=== PATIENT | female | born 1935 | race Caucasian/White ===

== ENCOUNTER 2019-04-04 05:15 | Inpatient (IN) | payer MEDICARE ==
--- NOTE | 2019-03-31 12:28 | Diagnostic Imaging Report ---
EXAM: CHEST 2 VIEWS, PA and lateral DATE: 03/31/2019 Time stamp on exam: 11:54 AM INDICATION: Preoperative for hip surgery COMPARISON: None FINDINGS: LINES/TUBES: None LUNGS: No consolidations or edema. PLEURA: No effusions or pneumothorax. HEART AND MEDIASTINUM: Normal size and contour. Tortuous thoracic aorta. BONES AND SOFT TISSUES: Sclerotic density of the right humeral head likely secondary to degenerative change or aseptic necrosis. IMPRESSION: No acute thoracic abnormality. Signed by: Dr. Hitesh Campa DO on 03/31/2019 12:25 PM
--- OUTSIDE RECORDS SUMMARY | 2019-04-03 06:41 | XMS REPORT ---
Author Author [facility] Address Unknown Phone Unavailable Care Team Providers Care Precision Structural Metal Fitter Name Role Phone BARRY VALDES Unavailable Unavailable Problems This patient has no known problems. Allergies, Adverse Reactions, Alerts This patient has no known allergies or adverse reactions. Medications This patient has no known medications. Results Test Description Test Time Test Comments Text Results Atomic Results Result Comments CHEST 2 VIEWS 2019-03-31 12:23:00 [place] [address] Patient Name: CANDICE GODINEZ MR #: [id number] : 1935 Age/Sex: 83/F Req #: [id number] Adm Physician: Ordered by: BARRY VALDES MD Report #: [id number] Location: OR Room/Bed: Procedure: [id number] DX/CHEST 2 VIEWS Exam Date: 03/31/19 Exam Time: 1155 REPORT STATUS: Signed EXAM: CHEST 2 VIEWS, PA and lateral DATE: 03/31/2019 Time sta mp on exam: 11:54 AM INDICATION: Preoperative for hip surgery COMPARISON: None FINDINGS: LINES/TUBES: None LUNGS: No consolidations or edema. PLEURA: No effusions or pneumothorax. HEART AND MEDIASTINUM: Normal size and contour. Tortuous thoracic aorta. BONES AND SOFT TISSUES: Sclerotic density of the right humeral head likely secondary to degenerative change or aseptic necrosis. IMPRESSION: No acute thoracic abnormality. Signed by: Dr. Kapil Campa DO on 03/31/2019 12:25 PM Dictated By: KAPIL CAMPA DO 1225 Transcribed By: BREN on 03/31/19 1225 COPY TO: BARRY VALDES MD
--- OUTSIDE RECORDS SUMMARY | 2019-04-03 06:42 | XMS REPORT | Summary of Care ---
Author Author [facility] Unknown Address Unknown Phone Unavailable Care Team Providers Care Needle Punch Operator Name Role Phone ALISHA JEFFERY M.D. Unavailable Unavailable MEL JONES Unavailable Unavailable LATIA MARTINEZ ILALISHA Unavailable Unavailable Unavailable Unavailable Functional Status Name Dates Details Functional status health issues are not documented Status: Name Dates Details Cognitive status health issues are not documented Status: Problems Name Dates Details Neuropathy, peripheral (356.9, G62.9) Status: Active GERD without esophagitis (530.81, K21.9) Status: Active Osteopenia (733.90, M85.80) Status: Active Osteoarthrosis (715.90, M19.90) Status: Active Essential hypertension (401.9, I10) Status: Active Hypercholesteremia (272.0, E78.00) Status: Active Hypothyroidism (244.9, E03.9) Status: Active Preoperative evaluation to rule out surgical contraindication (V72.83, Z01.818) Status: Active Medications Name Dates Details Levothyroxine Sodium 50 MCG Oral Tablet TAKE 1 TABLET BY MOUTH ONCE DAILY Quantity: 90 ALISHA JEFFERY M.D. * Start : 08-Mar-2019 Active Atorvastatin Calcium 10 MG Oral Tablet TAKE 1 TABLET BY MOUTH ONCE DAILY * Quantity: 90 Refills: 1 ALISHA JEFFERY M.D. * Start : 23-Jan-2019 Active Omeprazole 40 MG Oral Capsule Delayed Release TAKE ONE CAPSULE EVERY DAY * Quantity: 90 Refills: 1 ALISHA JEFFERY M.D. Active Gabapentin 300 MG Oral Capsule TAKE 1 CAPSULE BY MOUTH TWICE DAILY * Quantity: 180 Refills: 0 ALISHA JEFFERY M.D. * Start : 02-Mar-2019 Active Quinapril HCl - 10 MG Oral Tablet TAKE 1 TABLET BY MOUTH ONCE DAILY * Quantity: 90 Refills: 0 ALISHA JEFFERY M.D. * Start : 08-Mar-2019 Active hydroCHLOROthiazide 12.5 MG Oral Capsule TAKE 1 CAPSULE BY MOUTH ONCE DAILY * Quantity: 90 Refills: 1 ALISHA JEFFERY M.D. * Start : 08-Mar-2019 Active Citracal Plus Oral Tablet TAKE 1 TABLET TWICE DAILY * Quantity: 180 Refills: 3 LATIA FofanaALISHA * Start : 14-Oct-2017 Active B-12 100 MCG Oral Tablet TAKE 1 TABLET DAILY DIRECTED. * Refills: 0 Active Glucosamine Chondroitin TABS TAKE 2 TABLET DAILY * Refills: 0 Active Fish Oil 300 MG CAPS TAKE 2 CAPSULE DAILY * Refills: 0 Active Centrum Silver Oral Tablet TAKE 1 TABLET DAILY. * Refills: 0 Active Tylenol 8 Hour Arthritis Pain 650 MG Oral Tablet Extended Release TAKE 1 TABLET 3 TIMES DAILY. * Quantity: 90 Refills: 0 LATIA FofanaALISHA * Start : 11-May-2018 Active Vitamin D3 1000 UNIT Oral Tablet TAKE 1 TABLET TWICE DAILY * Refills: 0 Active Allergies and Adverse Reactions Name Dates Details No Known Drug Allergies (Allergy) Status: Active Past Medical History Name Dates Details History of gastroesophageal reflux (GERD) (V12.79, Z87.19) Status: Resolved History of hyperlipidemia (V12.29, Z86.39) Status: Resolved Procedures Procedure Dates Details History of Hip replacement Completed Immunization Name Dates Details Influenza, seasonal, injectable on: 29-Jun-2017 Prevnar 13 Intramuscular Suspension on: 27-Aug-2017 Fluzone High-Dose 0.5 ML Intramuscular Suspension Prefilled Syringe Lot #: [id number] on: 27-Jun-2018 Family History Name Dates Details Family history of essential hypertension (V17.49, Z82.49) Status: Active Social History Name Dates Details - Status: Name Dates Details Never smoker Never smoker Vital Signs Date Test Result Details [id number] BP Systolic 134 mm[Hg] Status: Comments: Location: LUE; Position: Sitting BP Diastolic 71 mm[Hg] Status: Comments: Location: LUE; Position: Sitting Physical Findings 0 Status: Comments: PHQ-9 Adult Depression Screening Physical Findings 0 Status: Comments: Alcohol Screen - How many times in the past yr have you had 5 (for M) or 4 (for F) or 4 (for all > 65yrs) or more drinks in a day? Height 65 in Status: Weight 143.3 lb Status: Body Mass Index Calculated 23.85 kg/m2 Status: Body Surface Area Calculated 1.72 m2 Status: Temperature 98 f Status: Comments: Method: Oral Heart Rate 64 /min Status: Respiration Rate 16 /min Status: Results Date Description Value Details :26 [[facility]] LIPID PANEL CHOLESTEROL, TOTAL 181 mg/dl (Normal) Range: <200 HDL CHOLESTEROL 62 mg/dl (Normal) Range: >50 TRIGLYCERIDES 192 mg/dl (Above high threshold) Range: <150 LDL-CHOLESTEROL 90 {MG/DL__CAL} (Normal) Comments: Reference range: <100 Desirable range <100 mg/dL for primary prevention; <70 mg/dL for patients with CHD or diabetic patients with > or=2 CHD risk factors. LDL-C is now calculated using yamilet Fountain calculation, which is a validated novel method providing better accuracy than the Friedewald equation in the estimation of LDL-C. Adiel LOTT et al. ANGELA. 2013;310(19): 4969-8414 (http:/ /[employer]/faq/FVG817) CHOL/HDLC RATIO 2.9 {CALC} (Normal) Range: <5.0 NON HDL CHOLESTEROL 119 {MG/DL__CAL} (Normal) Range: <130 Comments: For patients with diabetes plus 1 major ASCVD risk factor, treating to a non-HDL-C goal of <100 mg/dL (LDL-C of <70 mg/dL) is considered a therapeutic option. :26 [[facility]] PROTHROMBIN W/INR + PARTIAL THROMBOPLASTIN TIMES Comments: Reference Range 0.9-1.1Moderate-intensity Warfarin Therapy 2.0-3.0Higher-intensity Warfarin Therapy 3.0-4.0 PARTIAL THROMBOPLASTIN TIME, ACTIVATED 28 {sec} (Normal) Range: 22-34 Comments: This test has not been validated for monitoringunfractionated heparin therapy. For testing thatis validated for this type of therapy, please referto the Heparin Anti-Xa assay (test code 91060). For additional information, please refer tohttp://education.[employer]/faq/LFI321(This link is being provided for informational/educational purposes only.) INR 1.1 (Normal) Comments: Reference Range 0.9-1.1Moderate-intensity Warfarin Therapy 2.0-3.0Higher-intensity Warfarin Therapy 3.0-4.0 PT 10.9 {sec} (Normal) Range: 9.0-11.5 :26 [[facility]] CMP W/EGFR GLUCOSE 87 mg/dl (Normal) Range: 65-99 Comments: Fasting reference interval UREA NITROGEN (BUN) 16 mg/dl (Normal) Range: 7-25 CREATININE 0.71 mg/dl (Normal) Range: 0.60-0.88 Comments: For patients >49 years of age, the reference limitfor Creatinine is approximately 13% higher for peopleidentified as -Citizen Of [place]. eGFR NON- 78 {ML/MIN/1.7} (Normal) Range: > OR=60 eGFR 90 {ML/MIN/1.7} (Normal) Range: > OR=60 BUN/CREATININE RATIO NOT APPLICABLE {CALC} Range: 6-22 SODIUM 139 mmol/L (Normal) Range: 135-146 POTASSIUM 4.1 mmol/L (Normal) Range: 3.5-5.3 CHLORIDE 102 mmol/L (Normal) Range: 98-110 CARBON DIOXIDE 27 mmol/L (Normal) Range: 20-32 CALCIUM 9.7 mg/dl (Normal) Range: 8.6-10.4 PROTEIN, TOTAL 7.2 g/dl (Normal) Range: 6.1-8.1 ALBUMIN 4.4 g/dl (Normal) Range: 3.6-5.1 GLOBULIN 2.8 {G/DL__CALC} (Normal) Range: 1.9-3.7 ALBUMIN/GLOBULIN RATIO 1.6 {CALC} (Normal) Range: 1.0-2.5 BILIRUBIN, TOTAL 0.4 mg/dl (Normal) Range: 0.2-1.2 ALKALINE PHSPHATASE 65 u/l (Normal) Range: 33-130 AST 13 u/l (Normal) Range: 10-35 ALT 11 u/l (Normal) Range: 6-29 80-Zin-99025:26 [[facility]] CBC (INCLUDES DIFF/PLT) WHITE BLOOD CELL COUNT 6.0 {Thousand/u} (Normal) Range: 3.8-10.8 RED BLOOD CELL COUNT 4.72 {Million/uL} (Normal) Range: 3.80-5.10 HEMAGLOBIN 14.1 g/dl (Normal) Range: 11.7-15.5 HEMATOCRIT 41.7 % (Normal) Range: 35.0-45.0 MCV 88.3 fL (Normal) Range: 80.0-100.0 MCH 29.9 pg (Normal) Range: 27.0-33.0 MCHC 33.8 g/dl (Normal) Range: 32.0-36.0 RDW 13.3 % (Normal) Range: 11.0-15.0 PLATELET COUNT 230 {Thousand/u} (Normal) Range: 140-400 MPV 9.7 fL (Normal) Range: 7.5-12.5 ABSOLUTE NEUTROPHILS 3018 {cells/uL} (Normal) Range: 1458-0269 ABSOLUTE LYMPHOCYTES 2508 {cells/uL} (Normal) Range: 850-3900 ABSOLUTE MONOCYTES 198 {cells/uL} (Below low threshold) Range: 200-950 ABSOLUTE EOSINOPHILS 228 {cells/uL} (Normal) Range: 15-500 ABSOLUTE BASOPHILS 48 {cells/uL} (Normal) Range: 0-200 NEUTROPHILS 50.3 % (Normal) LYMPHOCYTES 41.8 % (Normal) MONOCYTES 3.3 % (Normal) EOSINOPHILS 3.8 % (Normal) BASOPHILS 0.8 % (Normal) :26 [[facility]] TSH, 3RD GENERATION TSH 4.44 {MIU/L} (Normal) Range: 0.40-4.50 :26 [[facility]] VITAMIN D, 25-HYDROXY, LC/MS/MS Comments: REPORT COMMENT:FASTING:YES VITAMIN D,25-OH,TOTAL,IA 33 ng/ml (Normal) Range: 30-100 Comments: Vitamin D Status 25-OH Vitamin D: Deficiency: <20 ng/mLInsufficiency: 20 - 29 ng/mLOptimal: > or=30 ng/mL For 25-OH Vitamin D testing on patients on D2-supplementation and patients for whom quantitation of D2 and D3 fractions is required, the QuestAssureD(TM)25-OH VIT D, (D2,D3), LC/MS/MS is recommended: order code 04012 (patients >2yrs). For more information on this test, go to:http://education.Peer[employer]/faq/KEB468(This link is being provided for informational/educational purposes only.) Plan of Care Name Dates Details Planned Observations Planned Goals not documented Planned Encounters Appointment; ALISHA JEFFERY M.D. On: 18-Jul-2019 15:15 Instructions Name Dates Details Instructions not documented Encounters Appointment; ALISHA JEFFERY M.D. Encounter Diagnosis: Problem not documented On: 14-Oct-2017 10:00 Appointment; ALISHA JEFFERY M.D. Encounter Diagnosis: Problem not documented On: 11-Jan-2018 11:00 Appointment; ALISHA JEFFERY M.D. Encounter Diagnosis: Problem not documented On: 11-May-2018 14:00 Appointment; ALISHA JEFFERY M.D. Encounter Diagnosis: Problem not documented On: 08-Jun-2018 11:30 Appointment; ALISHA JEFFERY M.D. Encounter Diagnosis: Problem not documented On: 07-Sep-2018 11:30 Appointment; ALISHA JEFFERY M.D. Encounter Diagnosis: Problem not documented On: 07-Sep-2018 11:30 Appointment; ALISHA JEFFERY M.D. Encounter Diagnosis: Problem not documented On: 12-Dec-2018 11:30 Appointment; ALISHA JEFFERY M.D. Encounter Diagnosis: Problem not documented On: 22-Mar-2019 14:30 Appointment; MEL JONES Encounter Diagnosis: Problem not documented On: 28-Mar-2019 16:00
[2019-04-04] VITALS (8 sets, daily range): BP systolic 107–141; BP diastolic 55–65
[~2019-04-04] VITALS: Ht 160 cm; Wt 66.2 kg
[~2019-04-04 05:15] MED LIST: ATORVASTATIN; ATORVASTATIN CA10 MG PO; BACITRACIN 50,000 UNIT VIAL ONE; CENTRUM SILVER1 EAC3 PO; CITRACAL PO; FISH OIL 1,0001 EAC2 PO; GABAPENTIN; GABAPENTIN300 MG PO; GLUCOSAMINE1000 MG PO; HYDROCHLOROTHIA25 MG PO; HYDROGEN PEROXIDE 120 ML BTL ONE; LEVOTHYROXINE; LEVOTHYROXINE50 MCG PO; OMEPRAZOLE40 MG; QUINAPRIL HCL20 MG PO; ROPIVACAINE 246.25 MG, EPINEPHRINE HCL 1:1000 1ML 0.5 MG, CLONIDINE HCL 0.08 MG, KETORO... INJ ONE; SODIUM CHLORIDE 0.9% 500ML 0 ML ONE; TRANEXAMIC ACID 1,000 MG/10 ML ML ONE; TYLENOL ARTHRITIS PO; VANCOMYCIN HCL 0 MG ONE; VITAMIN B12-FO1 EACH PO; VITAMIN D31000 UNIT PO
[2019-04-04] MEDS ORDERED: CELECOXIB 200 MG CAP ONE (06:01)
[2019-04-04] MEDS ORDERED: DEXAMETHASONE SOD PHOS 10 MG/1 ML VIAL ONE (06:01)
[2019-04-04] MEDS ORDERED: GABAPENTIN 300 MG CAP ONE (06:01)
[2019-04-04] MEDS ORDERED: CEFAZOLIN SOD 1 GM/NS 50ML 100 ML IV ONE (06:02)
[2019-04-04] MEDS ORDERED: HYDROCODONE/APAP 7.5MG-325MG 1 EA TAB PO PRN (09:00)
[2019-04-04] MEDS ORDERED: KETOROLAC TROMETHAMINE 30 MG/ML VIAL IV PRN (09:00)
[2019-04-04] MEDS ORDERED: ZOLPIDEM TARTRATE 5 MG TAB PO PRN (09:00)
[2019-04-04] MEDS ORDERED: DIPHENHYDRAMINE HCL INJ 50 MG/ML VIAL IM/IV PRN (09:00)
[2019-04-04] MEDS ORDERED: ONDANSETRON HCL INJ 2MG/ML 2ML 2 MG/ML VIAL IV PRN (09:00)
[2019-04-04] MEDS: ASPIRIN 325 MG TAB PO SCH ×2 (09:00→17:30)
[2019-04-04] MEDS ORDERED: PROMETHAZINE HCL (IM) 25 MG/ML VIAL INJ PRN (09:00)
[2019-04-04] MEDS ORDERED: ACETAMINOPHEN 650 MG SUPP PR PRN (09:00)
[2019-04-04] MEDS ORDERED: HYDROCODONE/APAP 5MG-325MG TAB PO PRN (09:00)
[2019-04-04] MEDS ORDERED: DOCUSATE SODIUM 100 MG CAP PO PRN (09:00)
--- NOTE | 2019-04-04 10:05 | NUR ---
RECEIVED PATIENT FROM OR. PATIENT A/O X3, EVEN RESPIRATIONS ON RA. LEFT HIP DRESSING CLEAN, DRY, AND INTACT. ABDUCTOR PILLOW IN PLACE. BETHANIE HOSE AND FOOT PUMPS BILATERALLY. VITAL SIGNS STABLE. NO DISCOMFORT AT THIS TIME. BED LOW, WHEELS LOCKED, SIDE RAILS X2. CALL LIGHT IN REACH WILL CONTINUE TO MONITOR PATIENT.
[2019-04-04] MEDS: SODIUM CHLORIDE 0.9% 1000ML 1,000 ML IV SCH ×2 (11:17→16:03)
--- NOTE | 2019-04-04 12:16 | Diagnostic Imaging Report ---
Exam: AP pelvis History: Prosthesis Comparison: None available Findings: New left hip prosthesis is present with surgical mathew noted laterally. There is some soft tissue air. Positioning is good. Old left hip prosthesis is in good position. Impression: Hip prosthesis in good position. Signed by: Dr. Hitesh Campa DO on 04/04/2019 12:13 PM
[2019-04-04] MEDS: ACETAMINOPHEN 1000 MG/100 ML IV SCH ×2 (12:38→17:30)
[2019-04-04] MEDS: CEFAZOLIN SOD 1 GM/NS 50ML 50 ML IV SCH (14:39)
--- NOTE | 2019-04-04 15:50 | NUR ---
PATIENT HAS VOIDED SINCE SURGERY.
[2019-04-04] MEDS: CELECOXIB 100 MG CAP PO SCH (17:30)
[2019-04-04] MEDS ORDERED: LIDOCAINE HCL 2% LOCAL INJ 5 ML SDV VIAL INJ ONE (17:52)
[2019-04-04] MEDS ORDERED: EPHEDRINE SULFATE INJ 50 MG/10 ML SYR ONE (17:52)
[2019-04-04] MEDS ORDERED: DESFLURANE 240 ML BTL INH ONE (17:52)
[2019-04-04] MEDS ORDERED: ONDANSETRON HCL INJ 2MG/ML 2ML 2 MG/ML VIAL ONE (17:52)
[2019-04-04] MEDS ORDERED: PROPOFOL IV EMULSION 10 MG/ML 20 ML VIAL ONE (17:52)
[2019-04-04] MEDS ORDERED: ACETAMINOPHEN 1000 MG/100 ML IV ONE (17:52)
[2019-04-04] MEDS ORDERED: DEXAMETHASONE SOD PHOS INJ 4 MG/ML VIAL ONE (17:52)
--- NOTE | 2019-04-04 19:20 | NUR ---
Received patient in bed in no acute distress, patient is alert and oriented, safety and fall precautions maintained as per hospital protocol: bed in lowest position and locked, needed items beside bed and call tidwell placed close to patient, patient is currently stable, will continue to monitor.
[2019-04-04] MEDS ORDERED: FENTANYL CITRATE/PF 100MCG/2 ML INJ ONE (19:57)
[2019-04-04] MEDS ORDERED: MIDAZOLAM HCL 2 MG/2 ML VIAL ONE (19:57)
[2019-04-05 04:00] VITALS: BP 137/63
[2019-04-05] MEDS: SODIUM CHLORIDE 0.9% 1000ML 1,000 ML IV SCH (04:58)
[2019-04-05] MEDS: ACETAMINOPHEN 1000 MG/100 ML IV SCH ×2 (05:40)
[2019-04-05 06:03] LABS: HEMATOCRIT 34.5 % (34.2-44.1); HEMOGLOBIN 11.5 g/dL (12.0-16.0)
[2019-04-05] MEDS: CEFAZOLIN SOD 1 GM/NS 50ML 50 ML IV SCH ×2 (06:41)
--- NOTE | 2019-04-05 06:54 | NUR ---
Patient condition throughout the night was stable, patient endorsed to next shift for continuity of care.
--- NOTE | 2019-04-05 07:20 | NUR ---
AMBULATING IN HALLWAY, STEADY GAIT, PHYSICAL THERAPIST AT SIDE
[2019-04-05 08:27] VITALS: BP 172/77
[2019-04-05] MEDS ORDERED: ONDANSETRON HCL 4 MG ORAL DISINTEGRATING TAB PO PRN (08:30)
--- NOTE | 2019-04-05 08:36 | NUR ---
MD VALDES INTO SEE PT, DISCUSSED POC
--- NOTE | 2019-04-05 08:36 | Operative Report ---
DATE OF PROCEDURE: 04/04/2019 SURGEON: Wayne Hewitt MD SECURED ENTRANCE MONITOR: Herb Bobby, certified PA PREOPERATIVE DIAGNOSIS: Osteoarthritis, left hip. POSTOPERATIVE DIAGNOSIS: Osteoarthritis, left hip. PROCEDURE: Left total hip arthroplasty. INDICATIONS: The patient is an 83-year-old lady, who has severe arthritis of her left hip. She has failed conservative management and would now like to proceed with a left total hip replacement. She went through a right hip replacement some years ago. I have reviewed the risks and benefits of the procedure. She states she understands and wishes to proceed. DESCRIPTION OF PROCEDURE: The patient was brought to the operating room and given a spinal anesthetic. She received prophylactic antibiotics and tranexamic acid in the holding area. She was also placed under a light general anesthetic. She was positioned in the right lateral decubitus position. Her left hip was prepped and draped in a sterile manner. A preoperative time-out was performed. A limited incision posterior approach was made to the left hip. Hemostasis was obtained with electrocautery. Care was taken to avoid injury to the sciatic nerve. The posterior capsule and short external rotators were released. Additional hemostasis was obtained with electrocautery. The hip was dislocated and an oscillating saw was used to resect the femoral head. Complete loss of articular cartilage was noted. Acetabular retractors were placed. A large remnant of degenerative labrum was excised. The true floor of the acetabulum was established with a 46 mm reamer. The socket was then sequentially reamed up to 55 mm. This accomplished bleeding hemispherical cancellous bone. Two or three small subchondral cysts were debrided with a curved curette and packed with autologous bone graft. A [employer] Trident 56 mm outer diameter socket was then impacted into place. Fixation was augmented with single 25 mm screw placed into the ilium. Good fixation was felt to be obtained. The socket had been thoroughly irrigated with a shower tip pulsatile lavage. A spray mixture of diluted vancomycin and polymyxin spray was also used throughout the case. A portion of 100 cc premixed pericapsular DYAN injection was placed around the capsule of the acetabulum. A highly cross-linked polyethylene liner with a 36 mm inner diameter was then impacted into place. Care was taken to make sure that there was no evidence of soft tissue interposition. The socket was packed with a moistly soaked lap sponge and attention was directed towards the proximal femur. A box cutting osteotome and taper pin reamer were used to establish entry to the femoral canal. The Tabor 37.5 mm offset broaches were impacted. A #zero stem had good canal fill and rotational stability for trial reduction. A standard 36 mm head provided appropriate soft tissue balancing, islam of limb length and stability. The trial implants were removed. A bone plug was placed down the femoral canal. The canal was thoroughly irrigated with a shower tip pulsatile lavage as well as a lavage that went down the canal. The canal was packed with moistly soaked peroxide sponges under suction while two mixes of Simplex cement preloaded with antibiotics were prepared on the back table. The cement was inserted in a retrograde fashion and pressurized until about 6.5 minutes of cement time. The stem was seated to the predetermined level in 15 degrees of anteversion. Once the cement had cured, repeat trial reductions were performed. Again, a standard 36 mm head was felt to be optimal. A stainless 36 mm head was then seated onto the stem after it had been cleaned and thoroughly dried. A final reduction was performed. The posterior capsule was carefully repaired with interrupted #2 Ethibond. The short external rotators were too contracted to repair in an anatomic position. The sciatic nerve was inspected and noted to be intact. 500 mg of vancomycin powder was sprinkled into the wound. The gluteal fascia and proximal iliotibial band were closed with interrupted #2 Ethibond. The skin was closed with subcuticular Vicryl and mathew. Estimated blood loss was 75 cc. All needle and sponge counts were correct. The patient was extubated and transported to the recovery room in stable condition. Wayne Hewitt MD DR/DEANNA /[id number]
[2019-04-05] MEDS: CELECOXIB 100 MG CAP PO SCH (09:00)
[2019-04-05] MEDS ORDERED: ACETAMINOPHEN 1000 MG/100 ML IV PRN (09:00)
--- NOTE | 2019-04-05 09:34 | NUR ---
MD JEFFERY INTO SEE PT, DISCUSSED POC
[2019-04-05] MEDS: ASPIRIN 325 MG TAB PO SCH (09:43)
--- NOTE | 2019-04-05 09:43 | NUR ---
PT ADMINISTERED ALL HER OWN AM MEDICATIONS, MD JEFFERY MADE AWARE, PT SITTING IN CHAIR, VOICES NO NEEDS AT THIS TIME, CALL LIGHT WITHIN REACH
[2019-04-05 09:48] VITALS: BP 172/77
[2019-04-05] MEDS ORDERED: MULTIVITAMINS/MINERALS TAB PO SCH (11:00)
[2019-04-05 12:30] VITALS: BP 154/72
--- NOTE | 2019-04-05 12:52 | NUR ---
DISCHARGE INSTRUCTIONS REVIEWED WITH PT AND FAMILY, VERBALIZED UNDERSTANDING, CLARIFIED WITH ANNY LYMAN THAT PT DOES NOT NEED HIP BRACE, WILL TELEPHONE EQUIPMENT COMPANY AGAIN
[2019-04-05] MEDS ORDERED: CITRACAL PO SCH (17:00)
[2019-04-05] MEDS ORDERED: NON-FORMULARY MEDICATION (Cholecalciferol (Vitamin D3) (Vitamin D3) 1 CAP) PO SCH (17:00)
[2019-04-05] MEDS ORDERED: OYST-CAL-D 500MG TABLET PO SCH (17:00)
[2019-04-05] MEDS ORDERED: CHOLECALCIFEROL 1,000 UNIT TAB PO SCH (17:00)
[2019-04-05] MEDS ORDERED: ATORVASTATIN 10 MG TAB PO SCH (21:00)
[2019-04-05] MEDS ORDERED: GABAPENTIN 300 MG CAP PO SCH (21:00)
[2019-04-06] MEDS ORDERED: LEVOTHYROXINE SODIUM 50 MCG TAB PO SCH (06:00)
[2019-04-06] MEDS ORDERED: PANTOPRAZOLE SOD 40 MG TABEC PO SCH (07:30)
[2019-04-06] MEDS ORDERED: QUINAPRIL HCL 5 MG PO SCH (09:00)
[2019-04-06] MEDS ORDERED: FISH OIL PO SCH (09:00)
[2019-04-06] MEDS ORDERED: OMEGA 3 POLYUNSAT FATTY ACIDS 1000 MG SOFTGEL PO SCH (09:00)
[2019-04-06] MEDS ORDERED: [UNRECOGNIZED DRUG - OTHER] PO SCH (09:00)
[2019-04-06] MEDS ORDERED: GLUCOSAMINE SULFATE PO SCH (09:00)
[2019-04-06] MEDS ORDERED: FOLIC ACID PO SCH (09:00)
[2019-04-06] MEDS ORDERED: CYANOCOBALAMIN PO SCH (09:00)
[2019-04-06] MEDS ORDERED: HYDROCHLOROTHIAZIDE 25 MG TAB PO SCH (09:00)
[2019-04-06] MEDS ORDERED: OMEGA PO SCH (09:00)
[2019-04-06] MEDS ORDERED: FATTY ACIDS PO SCH (09:00)
== END 2019-04-05 13:10 | disposition home health service (06) | DRG 470 ==
LOC: OR 05:15 → PACU V 08:59 → MED/SURG 10:18
PROVIDERS: ADMIT Specialist; ATTEND Specialist
PROC: 0SRB0J9 Replacement of Left Hip Joint with Synthetic Substitute, Cemented, Open Approach (ICD-10-PCS; principal; 2019-04-04 07:30)
DX: M16.0 Bilateral primary osteoarthritis of hip (principal); E78.5 Hyperlipidemia, unspecified; I10 Essential (primary) hypertension
CPT/HCPCS: 36415; 71046; 72170; 85014; 85018; 86850; 86900; 86920; C1713; J0171; J0690; J1100; J1885; J2001; J2250; J2405; J2795; J3010; J3370; J7030; J7040

== ENCOUNTER → 2020-06-14 | Outpatient (CLI) | payer MEDICARE ==
[~2020-06-14] MED LIST changes: -BACITRACIN 50,000 UNIT VIAL ONE; -HYDROGEN PEROXIDE 120 ML BTL ONE; -ROPIVACAINE 246.25 MG, EPINEPHRINE HCL 1:1000 1ML 0.5 MG, CLONIDINE HCL 0.08 MG, KETORO... INJ ONE; -SODIUM CHLORIDE 0.9% 500ML 0 ML ONE; -TRANEXAMIC ACID 1,000 MG/10 ML ML ONE; -VANCOMYCIN HCL 0 MG ONE
--- NOTE | 2020-06-14 12:37 | Diagnostic Imaging Report ---
Exam: KNEE LEFT THREE VIEWS History: Left knee pain, left knee joint osteoarthritis Comparison: None. Findings: No fractures of acute osseous abnormalities. Diffuse osseous demineralization. Minimal degenerative osteoarthrosis of the medial and patellofemoral compartments. No significant joint effusion. Quadriceps enthesopathy at the superior aspect of the patella. Scattered vascular calcifications. Impression: 1. No acute osseous abnormality. 2. Minimal degenerative osteoarthrosis of the medial and patellofemoral compartments. Signed by: Dr. Stewart Hodgson M.D. on 06/14/2020 12:34 PM
--- NOTE | 2020-06-17 16:11 | Diagnostic Imaging Report ---
Examination: MRI SPINE LUMBAR WO CONTRAST History: Left knee and hip pain. Lumbar disc degeneration. Comparison studies: None Technique: Sagittal, coronal and axial T2 , sagittal T1 and STIR; axial spin density oblique. Findings: Number of lumbar vertebral bodies: Five. Alignment: Normal lordosis. Rightward curvature centered at L2-L3. Soft tissues: A 7.8 x 6.9 x 6.8 cm (superoinferior x anteroposterior x transverse dimensions) heterogeneous lesion is identified at the posterior aspect of the interpolar and superior pole of the left kidney, concerning for renal cell carcinoma. Posterior paraspinal soft tissues and muscles: Mild bilateral fatty atrophy from L1. Lower thoracic cord: Normal in signal and morphology. The tip of the conus is at T12-L1. Cauda equina: No masses. No arachnoiditis. Vertebrae: No fractures, infection or neoplasm. Degenerative changes: L1-L2: Diffuse disc bulge and bilateral facet arthropathy results in mild bilateral neural foraminal clearing and mild canal stenosis. L2-L3: Diffuse disc bulge, ligamentum flavum thickening and bilateral facet arthropathy results in mild right and severe left neural foraminal narrowing and severe canal stenosis. L3-L4: Asymmetric to the left disc bulge, ligamentum flavum thickening and bilateral facet arthropathy in moderate right and severe left neural foraminal narrowing and severe canal stenosis. L4-L5: Diffuse disc bulge, ligamentum flavum thickening and bilateral facet arthropathy results in severe right and mild left neural foraminal narrowing and moderate canal stenosis. L5-S1: Diffuse disc bulge and bilateral facet arthropathy results in moderate right and severe left neural foraminal narrowing. No canal stenosis. 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 IMPRESSION: Heterogeneous 7.8 x 6.9 x 6.8 cm mass of the left kidney is concerning for renal cell carcinoma.. CT of the abdomen and pelvis with contrast is recommended for further evaluation. Degenerative changes from L1-L2 through L5-S1 with severe canal stenosis at L2-L3 and L3-L4, moderate canal stenosis at L4-5 and mild canal stenosis at L1-L2. Severe left foraminal narrowing at L2-L3, L3-L4 and L5-S1; severe right foraminal narrowing at L4-L5. Signed by: Dr. Neelam Padron M.D. on 06/17/2020 4:07 PM
== END ==
LOC: MRI 10:25
PROVIDERS: ATTEND Anesthesiology
DX: M51.36 Other intervertebral disc degeneration, lumbar region (principal); M54.16 Radiculopathy, lumbar region
CPT/HCPCS: 72148

== ENCOUNTER 2021-06-27 13:48 | Inpatient (IN) | payer MEDICARE ==
[~2021-06-27] VITALS: Ht 160 cm; Wt 66.2 kg
[2021-06-27 14:28] LABS: BASOPHILS # (AUTO) 0.1 (0.0-0.1); BASOPHILS % 0.6 % (0.0-1.0); EOSINOPHILS # (AUTO) 0.3 (0.0-0.4); EOSINOPHILS % 2.9 % (0.0-6.0); HEMATOCRIT 25.2 % (34.2-44.1); LYMPHOCYTES % 31.8 % (18.0-39.1); MEAN CORPUSCULAR HEMOGLOBIN 19.9 pg (28-32); MEAN CORPUSCULAR HGB CONC 27.8 g/dL (31-35); MEAN CORPUSCULAR VOLUME 71.8 fL (81-99); MONOCYTES # (AUTO) 0.7 (0.2-0.8); NEUTROPHILS # (AUTO) 5.5 (2.1-6.9); NEUTROPHILS % 57.4 % (38.7-80.0); PLATELET COUNT 672 x10e3/uL (140-360); RED BLOOD COUNT 3.51 x10e6/uL (3.6-5.1)
[2021-06-27 14:57] LABS: INR 1.3; PROTHROMBIN TIME 16.4 seconds (11.9-14.5)
[2021-06-27] MEDS: SODIUM CHLORIDE 0.9% 1000ML 1,000 ML IV SCH (16:10)
[2021-06-27 17:36] LABS: ALBUMIN 2.3 g/dL (3.5-5.0); ALBUMIN/GLOBULIN RATIO 0.5 (0.8-2.0); ANION GAP 20.1 mmol/L (8-16); CALCIUM 8.7 mg/dL (8.4-10.2); CREATININE, SERUM 0.77 mg/dL (0.57-1.11); POTASSIUM 4.1 mmol/L (3.5-5.1)
[2021-06-27 20:00] VITALS: BP 144/61
[2021-06-27] MEDS ORDERED: SODIUM CHLORIDE 0.9% 250ML 250 ML IV ONE (22:00)
[2021-06-27 23:35] VITALS: BP 144/61
[2021-06-28] VITALS: BP 126/67
[2021-06-28 00:41] LABS: FERRITIN 434.78 ng/mL (4.63-204.00)
[2021-06-28] MEDS: SODIUM CHLORIDE 0.9% 1000ML 1,000 ML IV SCH ×2 (02:21→11:58)
[2021-06-28] MEDS ORDERED: SODIUM CHLORIDE 0.9% 250ML 250 ML ONE (02:32)
[2021-06-28 04:00] VITALS: BP 119/64
[2021-06-28] MEDS ORDERED: SODIUM CHLORIDE 0.9% 50ML 50 ML ONE (08:19)
[2021-06-28 08:36] VITALS: BP 136/57
[2021-06-28] MEDS ORDERED: IRON SUCROSE 100 MG in SODIUM CHLORIDE 0.9% 100 ML 100 ML IV SCH (09:00)
[2021-06-28 10:55] LABS: BASOPHILS % 0.5 % (0.0-1.0); EOSINOPHILS # (AUTO) 0.2 (0.0-0.4); EOSINOPHILS % 2.6 % (0.0-6.0); HEMATOCRIT 26.3 % (34.2-44.1); HEMOGLOBIN 7.7 g/dL (12.0-16.0); LYMPHOCYTES # (AUTO) 2.2 (1.0-3.2); LYMPHOCYTES % 27.1 % (18.0-39.1); MEAN CORPUSCULAR HEMOGLOBIN 21.4 pg (28-32); MEAN CORPUSCULAR HGB CONC 29.3 g/dL (31-35); MEAN CORPUSCULAR VOLUME 73.3 fL (81-99); MONOCYTES # (AUTO) 0.5 (0.2-0.8); MONOCYTES % 6.4 % (4.4-11.3); NEUTROPHILS # (AUTO) 5.1 (2.1-6.9); PLATELET COUNT 459 x10e3/uL (140-360); RED BLOOD COUNT 3.59 x10e6/uL (3.6-5.1); RED CELL DISTRIBUTION WIDTH 21.2 % (11.7-14.4)
[2021-06-28 11:13] LABS: ANION GAP 13.4 mmol/L (8-16); CALCIUM 8.1 mg/dL (8.4-10.2); CREATININE, SERUM 0.63 mg/dL (0.57-1.11); POTASSIUM 3.4 mmol/L (3.5-5.1)
[2021-06-28 12:40] VITALS: BP 133/64
[2021-06-28] MEDS ORDERED: LIDOCAINE HCL 2% LOCAL INJ 5 ML SDV VIAL INJ ONE (12:44)
[2021-06-28] MEDS ORDERED: PROPOFOL IV EMULSION 10 MG/ML 20 ML VIAL ONE (12:44)
[2021-06-28 13:27] VITALS: BP 160/69
[2021-06-28 14:39] VITALS: BP 125/66
== END 2021-06-28 16:50 | disposition home or self-care (01) | DRG 378 ==
LOC: ER 13:59 → ERHOLD 15:26 → MED/SURG2 18:55
PROVIDERS: ADMIT Internal Medicine; ATTEND Internal Medicine
PROC: 30233N1 Transfusion of Nonautologous Red Blood Cells into Peripheral Vein, Percutaneous Approach (ICD-10-PCS; 2021-06-28)
PROC: 0DB78ZX Excision of Stomach, Pylorus, Via Natural or Artificial Opening Endoscopic, Diagnostic (ICD-10-PCS; principal; 2021-06-28 13:39)
DX: K29.71 Gastritis, unspecified, with bleeding (principal); D62 Acute posthemorrhagic anemia; K44.9 Diaphragmatic hernia without obstruction or gangrene; K20.90 Esophagitis, unspecified without bleeding; D50.9 Iron deficiency anemia, unspecified; K20.91 Esophagitis, unspecified with bleeding; Z20.822 Contact with and (suspected) exposure to COVID-19; E03.9 Hypothyroidism, unspecified
CPT/HCPCS: 36415; 43239; 80048; 80053; 82607; 82728; 82746; 83540; 84466; 85025; 85045; 85610; 86850; 86900; 86920; 88305; 88312; 88313; 99283; J1756; J2001; J7030; J7050; P9016; U0002

== ENCOUNTER → 2021-07-16 | Day surgery (SDC) | payer MEDICARE ==
[2021-07-14 15:30] LABS: BASOPHILS # (AUTO) 0.1 (0.0-0.1); BASOPHILS % 0.5 % (0.0-1.0); EOSINOPHILS # (AUTO) 0.1 (0.0-0.4); HEMATOCRIT 25.5 % (34.2-44.1); HEMOGLOBIN 7.2 g/dL (12.0-16.0); LYMPHOCYTES # (AUTO) 2.7 (1.0-3.2); LYMPHOCYTES % 27.1 % (18.0-39.1); MEAN CORPUSCULAR HGB CONC 28.2 g/dL (31-35); MEAN CORPUSCULAR VOLUME 74.3 fL (81-99); MONOCYTES # (AUTO) 0.7 (0.2-0.8); MONOCYTES % 6.7 % (4.4-11.3); NEUTROPHILS # (AUTO) 6.3 (2.1-6.9); NEUTROPHILS % 64.3 % (38.7-80.0); PLATELET COUNT 504 x10e3/uL (140-360); RED BLOOD COUNT 3.43 x10e6/uL (3.6-5.1); RED CELL DISTRIBUTION WIDTH 21.2 % (11.7-14.4)
[~2021-07-16] MED LIST changes: +ARICEPT5 MG PO
[2021-07-16 08:45] VITALS: BP 102/54
== END | disposition home or self-care (01) ==
LOC: OR 06:03
PROVIDERS: ATTEND Internal Medicine Gastroenterology
DX: D50.9 Iron deficiency anemia, unspecified (principal); K58.9 Irritable bowel syndrome, unspecified; Q27.33 Arteriovenous malformation of digestive system vessel; E03.9 Hypothyroidism, unspecified; I10 Essential (primary) hypertension; E78.5 Hyperlipidemia, unspecified; K44.9 Diaphragmatic hernia without obstruction or gangrene; F31.9 Bipolar disorder, unspecified; Z01.810 Encounter for preprocedural cardiovascular examination; Z01.812 Encounter for preprocedural laboratory examination; Z20.822 Contact with and (suspected) exposure to COVID-19
CPT/HCPCS: 36415; 45388; 85025; 93005; U0002; 45378

== ENCOUNTER 2021-08-28 12:19 | Inpatient (IN) | payer MEDICARE ==
[~2021-08-28] VITALS: Ht 165.1 cm; Wt 57.2 kg
[2021-08-28] MEDS ORDERED: SODIUM CHLORIDE FLUSH 10 ML SYR INJ PRN ×2 (12:45→16:00)
[2021-08-28] MEDS ORDERED: SODIUM CHLORIDE 0.9% 250ML 250 ML IV ONE ×3 (12:45→21:00)
[2021-08-28 13:12] LABS: BASOPHILS # (AUTO) 0.1 (0.0-0.1); BASOPHILS % 0.6 % (0.0-1.0); EOSINOPHILS # (AUTO) 0.1 (0.0-0.4); EOSINOPHILS % 1.2 % (0.0-6.0); HEMATOCRIT 24.3 % (34.2-44.1); LYMPHOCYTES # (AUTO) 2.1 (1.0-3.2); LYMPHOCYTES % 25.5 % (18.0-39.1); MEAN CORPUSCULAR HEMOGLOBIN 20.8 pg (28-32); MEAN CORPUSCULAR HGB CONC 27.2 g/dL (31-35); MEAN CORPUSCULAR VOLUME 76.4 fL (81-99); MONOCYTES # (AUTO) 0.4 (0.2-0.8); MONOCYTES % 5.3 % (4.4-11.3); NEUTROPHILS # (AUTO) 5.6 (2.1-6.9); NEUTROPHILS % 66.9 % (38.7-80.0); PLATELET COUNT 542 x10e3/uL (140-360); RED BLOOD COUNT 3.18 x10e6/uL (3.6-5.1); RED CELL DISTRIBUTION WIDTH 20.1 % (11.7-14.4)
[2021-08-28 13:15] LABS: HEMOGLOBIN 6.6 g/dL (12.0-16.0)
[2021-08-28 13:33] LABS: ALBUMIN 1.8 g/dL (3.5-5.0); ALBUMIN/GLOBULIN RATIO 0.4 (0.8-2.0); ANION GAP 15.1 mmol/L (8-16); CALCIUM 7.9 mg/dL (8.4-10.2); CREATININE, SERUM 0.68 mg/dL (0.57-1.11); POTASSIUM 3.1 mmol/L (3.5-5.1)
[2021-08-28] MEDS ORDERED: POTASSIUM CHLORIDE 20 MEQ TAB CR PO STA (15:59)
[2021-08-28] MEDS ORDERED: ONDANSETRON HCL INJ 2MG/ML 2ML 2 MG/ML VIAL IV PRN (16:00)
[2021-08-28 17:44] VITALS: BP 132/80
[2021-08-28 17:47] VITALS: BP 132/80
[2021-08-28 20:00] VITALS: BP 119/69
[2021-08-28 22:10] LABS: % IRON SATURATION 11 % (15-50); IRON 17 ug/dL (50-170); TOTAL IRON BINDING CAPACITY 155 ug/dL (261-478); TRANSFERRIN 111 mg/dL (180-382)
[2021-08-29] VITALS (8 sets, daily range): BP systolic 116–160; BP diastolic 56–90
[2021-08-29] MEDS ORDERED: SODIUM CHLORIDE 0.9% 250ML 250 ML ONE (01:06)
[2021-08-29 05:33] LABS: BASOPHILS % 0.5 % (0.0-1.0); EOSINOPHILS # (AUTO) 0.1 (0.0-0.4); EOSINOPHILS % 1.6 % (0.0-6.0); HEMATOCRIT 25.9 % (34.2-44.1); LYMPHOCYTES # (AUTO) 2.2 (1.0-3.2); LYMPHOCYTES % 26.6 % (18.0-39.1); MEAN CORPUSCULAR HEMOGLOBIN 23.1 pg (28-32); MEAN CORPUSCULAR HGB CONC 30.9 g/dL (31-35); MEAN CORPUSCULAR VOLUME 74.9 fL (81-99); MONOCYTES # (AUTO) 0.5 (0.2-0.8); MONOCYTES % 5.6 % (4.4-11.3); NEUTROPHILS # (AUTO) 5.5 (2.1-6.9); NEUTROPHILS % 65.2 % (38.7-80.0); PLATELET COUNT 448 x10e3/uL (140-360); RED BLOOD COUNT 3.46 x10e6/uL (3.6-5.1); RED CELL DISTRIBUTION WIDTH 18.8 % (11.7-14.4)
[2021-08-29 05:52] LABS: ALBUMIN 1.6 g/dL (3.5-5.0); ALBUMIN/GLOBULIN RATIO 0.4 (0.8-2.0); ANION GAP 13.3 mmol/L (8-16); CALCIUM 7.8 mg/dL (8.4-10.2); CREATININE, SERUM 0.63 mg/dL (0.57-1.11); POTASSIUM 3.3 mmol/L (3.5-5.1)
[2021-08-29] MEDS ORDERED: HEPARIN SOD (PORCINE) 1000 UNIT/ML SDV ONE (10:11)
[2021-08-29] MEDS: IRON SUCROSE 100 MG in SODIUM CHLORIDE 0.9% 100 ML 100 ML IV SCH (17:15)
[2021-08-30 00:14] VITALS: BP 112/62
[2021-08-30 06:01] VITALS: BP 129/62
[2021-08-30 06:36] LABS: BASOPHILS % 0.3 % (0.0-1.0); EOSINOPHILS # (AUTO) 0.1 (0.0-0.4); EOSINOPHILS % 1.5 % (0.0-6.0); HEMOGLOBIN 9.3 g/dL (12.0-16.0); LYMPHOCYTES # (AUTO) 1.8 (1.0-3.2); LYMPHOCYTES % 20.7 % (18.0-39.1); MEAN CORPUSCULAR HEMOGLOBIN 22.4 pg (28-32); MEAN CORPUSCULAR HGB CONC 29.1 g/dL (31-35); MEAN CORPUSCULAR VOLUME 77.1 fL (81-99); MONOCYTES # (AUTO) 0.4 (0.2-0.8); NEUTROPHILS # (AUTO) 6.3 (2.1-6.9); NEUTROPHILS % 72.2 % (38.7-80.0); PLATELET COUNT 496 x10e3/uL (140-360); RED BLOOD COUNT 4.15 x10e6/uL (3.6-5.1); RED CELL DISTRIBUTION WIDTH 19.8 % (11.7-14.4)
[2021-08-30 06:48] LABS: INR 1.27; PROTHROMBIN TIME 16.9 seconds (11.9-14.5)
[2021-08-30 06:49] LABS: PARTIAL THROMBOPLASTIN TIME 36.9 seconds (23.8-35.5)
[2021-08-30 06:53] LABS: ANION GAP 14.5 mmol/L (8-16); CALCIUM 7.8 mg/dL (8.4-10.2); CREATININE, SERUM 0.65 mg/dL (0.57-1.11); MAGNESIUM 1.8 MG/DL (1.3-2.1); PHOSPHORUS 3.7 MG/DL (2.3-4.7); POTASSIUM 3.5 mmol/L (3.5-5.1)
[2021-08-30 07:14] LABS: THYROID STIMULATING HORMONE 3.297 uIU/mL (0.350-4.940)
[2021-08-30 07:41] VITALS: BP 146/69
[2021-08-30 08:00] VITALS: BP 146/69
[2021-08-30] MEDS: IRON SUCROSE 100 MG in SODIUM CHLORIDE 0.9% 100 ML 100 ML IV SCH (10:08)
[2021-08-30 11:44] VITALS: BP 160/83
== END 2021-08-30 13:31 | disposition home or self-care (01) | DRG 378 ==
LOC: ER 12:30 → ERHOLD 16:06 → MED/SURG 17:18
PROVIDERS: ADMIT Internal Medicine; ATTEND Internal Medicine
PROC: 30233N1 Transfusion of Nonautologous Red Blood Cells into Peripheral Vein, Percutaneous Approach (ICD-10-PCS; principal; 2021-08-28)
DX: K55.21 Angiodysplasia of colon with hemorrhage (principal); D62 Acute posthemorrhagic anemia; E87.6 Hypokalemia; I10 Essential (primary) hypertension; E03.9 Hypothyroidism, unspecified; E78.5 Hyperlipidemia, unspecified; F03.90 Unspecified dementia, unspecified severity, without behavioral disturbance, psychotic disturbance, mood disturbance, and anxiety
CPT/HCPCS: 36415; 78278; 80048; 80053; 82270; 82607; 82746; 83540; 83735; 84100; 84443; 84466; 85025; 85045; 85610; 85730; 86850; 86900; 86920; 93005; 99284; A9512; J1644; J1756; J7050; P9016; U0002